=== PATIENT | female | born 1985 ===

== ENCOUNTER 2021-07-25 00:03 | Inpatient (IN) | payer BC ==
[2021-07-25] MEDS ORDERED: Tranexamic Acid 1,000 MG in Sodium Chloride 0.9% 100 ML IV PRN (00:08)
[2021-07-25] MEDS ORDERED: Sodium Chloride 0.9% 20 ML SDV IV PRN (00:08)
[2021-07-25] MEDS ORDERED: Sodium Chloride 0.9% 2.5 ML Syringe FLUSH PRN (00:08)
[2021-07-25] MEDS ORDERED: Ondansetron 4 MG/2 ML SDV IVPUSH PRN (00:08)
[2021-07-25] MEDS ORDERED: Butorphanol 1 MG/ML SDV IVPUSH PRN (00:08)
[2021-07-25] MEDS ORDERED: Misoprostol 200 MCG Tab PO PRN (00:08)
[2021-07-25] MEDS ORDERED: Lidocaine 1% 50 ML MDV INJECT PRN (00:08)
[2021-07-25] MEDS ORDERED: Water For Irrigation,Sterile 1,000 ML Container IRR PRN (00:08)
[2021-07-25] MEDS ORDERED: Carboprost Tromethamine 250 MCG/1 ML Amp IM PRN (00:08)
[2021-07-25] MEDS ORDERED: Sodium Chloride 0.9% 10 ML Syringe FLUSH PRN (00:08)
[2021-07-25] MEDS ORDERED: Methylergonovine 0.2 MG/1 ML Amp IM PRN (00:08)
[2021-07-25] MEDS ORDERED: Misoprostol 25 MCG (1/4 of 100 MCG) Tab VAG PRN ×2 (00:12→02:00)
[2021-07-25] MEDS ORDERED: Terbutaline 1 MG/ML SDV SUBCUT PRN (00:12)
[2021-07-25] MEDS ORDERED: Oxytocin/0.9 % Sodium Chloride 30 UNIT/500 ML BAG IV SCH ×2 (00:15)
[2021-07-25] MEDS: Lactated Ringers 1,000 ML IV SCH ×4 (01:07→17:35)
[2021-07-25] MEDS ORDERED: ePHEDrine 50 MG/ML SDV IVPUSH PRN ×2 (07:17)
[2021-07-25] MEDS ORDERED: Ropivacaine 200 MG in Premix Bag 1 BAG EPIDUR SCH (07:30)
[2021-07-25] MEDS ORDERED: Ibuprofen 400 MG Tab PO PRN (21:10)
[2021-07-25] MEDS ORDERED: Benzocaine/Menthol 20%-0.5% Spray 78 GM Cannister TOP PRN (21:10)
[2021-07-25] MEDS ORDERED: Witch Hazel Medicated Pads 40/Jar TOP PRN (21:10)
[2021-07-25] MEDS ORDERED: Lanolin 100% Cream 7 GM Tube TOP PRN (21:10)
[2021-07-25] MEDS ORDERED: Bisacodyl 10 MG Supp RECTAL PRN (21:10)
[2021-07-25] MEDS ORDERED: Acetaminophen 500 MG Tab PO PRN (21:10)
[2021-07-25] MEDS: Acetaminophen 500 MG Tab PO PRN (22:05)
[2021-07-25] MEDS: Ibuprofen 800 MG Tab PO PRN (22:05)
[2021-07-25] MEDS: Docusate Sodium 100 MG Cap PO PRN (22:05)
[2021-07-26] MEDS: Acetaminophen 500 MG Tab PO PRN (04:59)
[2021-07-26] MEDS: Ibuprofen 800 MG Tab PO PRN ×2 (04:59→15:56)
[2021-07-26] MEDS: Docusate Sodium 100 MG Cap PO PRN ×2 (10:35→22:19)
[2021-07-26] MEDS: Prenatal Multivitamin with Calcium/Folic Acid/Iron Tab PO SCH (15:57)
[2021-07-27] MEDS: Ibuprofen 800 MG Tab PO PRN (03:57)
[2021-07-27] MEDS: Docusate Sodium 100 MG Cap PO PRN (09:00)
[2021-07-27] MEDS: Prenatal Multivitamin with Calcium/Folic Acid/Iron Tab PO SCH (09:00)
[2021-07-27 17:07] VITALS: BP 113/66; PULSE 79
== END 2021-07-27 17:45 | disposition home or self-care (01) | DRG 560 ==
LOC: MW.OBCHECK 00:03 → MW.OB 00:06 → MW.OBCHECK 00:09 → OBSVTOIN 20:30 → MW.OB 07-26 00:10
PROVIDERS: ADMIT Obstetrics & Gynecology; ATTEND Obstetrics & Gynecology
PROC: 10E0XZZ Delivery of Products of Conception, External Approach (ICD-10-PCS; principal; 2021-07-25)
PROC: 10907ZC Drainage of Amniotic Fluid, Therapeutic from Products of Conception, Via Natural or Artificial Opening (ICD-10-PCS; 2021-07-25)
PROC: 3E033VJ Introduction of Other Hormone into Peripheral Vein, Percutaneous Approach (ICD-10-PCS; 2021-07-25)
PROC: 3E0P7VZ Introduction of Hormone into Female Reproductive, Via Natural or Artificial Opening (ICD-10-PCS; 2021-07-25)
PROC: 0KQM0ZZ Repair Perineum Muscle, Open Approach (ICD-10-PCS; 2021-07-25)
PROC: 3E0R3BZ Introduction of Anesthetic Agent into Spinal Canal, Percutaneous Approach (ICD-10-PCS; 2021-07-25)
PROC: 00HU33Z Insertion of Infusion Device into Spinal Canal, Percutaneous Approach (ICD-10-PCS; 2021-07-25)
DX: O30.013 Twin pregnancy, monochorionic/monoamniotic, third trimester (principal); Z3A.39 39 weeks gestation of pregnancy; Z37.3 Twins, one liveborn and one stillborn; O70.1 Second degree perineal laceration during delivery
CPT/HCPCS: 01967; 36415; 51701; 51702; 59025; 59409; 82803; 85014; 85018; 85027; 86592; 86850; 86900; 86901; A9270-GY; J2590; J7120